=== PATIENT | female | born 1940 | race Caucasian/White ===

== ENCOUNTER 2017-11-03 12:23 | Inpatient (IN) ==
--- NOTE | 2017-11-03 08:55 | Discharge Summary ---
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 Diabetes mellitus complication status: with unspecified complications Qualified Code(s): E11.8 - Type 2 diabetes mellitus with unspecified complications (4) HTN (hypertension) Priority: Secondary Status: Chronic Qualifiers: Hypertension type: essential hypertension Qualified Code(s): I10 - Essential (primary) hypertension (5) Thyroid disease Priority: Secondary Status: Chronic (6) CKD (chronic kidney disease) stage 3, GFR 30-59 ml/min Priority: Secondary Status: Chronic (7) Obesity Priority: Secondary Status: Acute Qualifiers: Obesity type: due to excess calories Obesity classification: unspecified obesity classification Serious obesity comorbidity presence: without serious comorbidity Qualified Code(s): E66.09 - Other obesity due to excess calories - Hospital Course Hospital course: Ms. Ulloa is a 77 year old female - Time Spent with Patient Total time spent providing and/or coordinating discharge services: - Discharge Medications Home Medications: Allopurinol [Zyloprim] 300 mg PO DAILY 05/19/17 [History] Aspirin [Lo-Dose Aspirin EC] 81 mg PO DAILY 05/19/17 [History] Atenolol [Tenormin] 100 mg PO DAILY 05/19/17 [History] Cholecalciferol (D-3) [Vitamin D] 1,000 unit PO DAILY 05/19/17 [History] Fluticasone Propionate Nasal [Flonase] 1 spr NS DAILY PRN 05/19/17 [History] Furosemide [Lasix] 20 mg PO BID 05/19/17 [History] Levothyroxine [Synthroid] 150 mcg PO DAILY 05/19/17 [History] Losartan/Hydrochlorothiazide [Hyzaar 100-25 Tablet] 1 tab PO DAILY 05/19/17 [ History] Metformin HCl [Glucophage] 1,000 mg PO BID 05/19/17 [History] Pantoprazole Sodium [Protonix] 40 mg PO DAILY 05/19/17 [History] glipiZIDE [Glipizide] 10 mg PO BID 05/19/17 [History] OxyCODONE Immed Rel [Roxicodone 5 MG] 5 mg PO Q6HR PRN 7 Days #28 tablet [Rx] Allergies/Adverse Reactions: 3 Allergy/AdvReac Type Severity Reaction Status Date / Time No Known Allergies Allergy Verified 11/03/17 13:30 Primary care physician: Dafne Rodriguez - Patient Status Disposition: Home, Self-Care Condition: Good - Discharge Instructions Follow Up With: Dafne Rodriguez MD [Primary Care Provider] - <Gilberto Dale - Last Filed: 11/04/17 05:58> Orders not resulted at time of discharge: Pending orders 11/03/17 06:54 XR shoulder complete LT [XR] Routine Hemoglobin and Hematocrit [HEME] Routine Date of Encounter: 11/04/17 Time of Encounter: 05:58 - Discharge Diagnosis (1) Obesity (BMI 35.0-39.9 without comorbidity) Priority: Secondary Status: Chronic (2) Cervical stenosis of spinal canal Priority: Secondary Status: Chronic (3) Cervical myelopathy Priority: Secondary Status: Chronic (4) Rotator cuff arthropathy of left shoulder Priority: Primary Status: Chronic (5) Status post reverse total arthroplasty of left shoulder Priority: Primary Status: Acute (6) DMII (diabetes mellitus, type 2) Priority: Secondary Status: Chronic Qualifiers: 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 Ulloa is a 77 year old female Status post left total shoulder replacement The patient had an uneventful postoperative course. They received antibiotics and physical therapy and were discharged in stable condition. There will follow -up in the office in 2 weeks. - Time Spent with Patient Total time spent providing and/or coordinating discharge services: Primary care physician: Dafne Rodriguez - Patient Status Functional capacity at discharge: independent ambulation Overall status at discharge: patient is progressing back to baseline
[2017-11-03] MEDS ORDERED: CeFAZolin Syr 2,000MG/20 ML 2,000 MG/20 ML SYRINGE IVPB ONE (12:55)
--- NOTE | 2017-11-03 12:57 | Anesthesia Evaluation PreOp ---
Date of Encounter: 11/03/17 Time of Encounter: 12:57 - Past History Planned Operation: Left Total Shoulder Replacement Cardiac History: HTN Pulmonary History: Denies Any Significant HX INVESTOR RELATIONS COORDINATOR History: Denies Any Significant HX Other Medical History: Renal (CRD stage III), Diabetes Type II, Thyroid (Hypo) Anesthesia History: No Prior Anesthetic Complications, Past Anesthesia (L. knee , REGGIE,Breast cyst, Foot sx, R. TKR, multiple level cervical fusion) : No Alcohol Use: none Drug use: none Medications and Allergies Allopurinol [Zyloprim] 300 mg PO DAILY 05/19/17 [History] Aspirin [Lo-Dose Aspirin EC] 81 mg PO DAILY 05/19/17 [History] Atenolol [Tenormin] 100 mg PO DAILY 05/19/17 [History] Cholecalciferol (D-3) [Vitamin D] 1,000 unit PO DAILY 05/19/17 [History] Duloxetine HCl [Cymbalta] 60 mg PO HS 05/19/17 [History] Fluticasone Propionate Nasal [Flonase] 1 spr NS DAILY PRN 05/19/17 [History] Furosemide [Lasix] 20 mg PO BID 05/19/17 [History] Levothyroxine [Synthroid] 150 mcg PO DAILY 05/19/17 [History] Losartan/Hydrochlorothiazide [Hyzaar 100-25 Tablet] 1 tab PO DAILY 05/19/17 [ History] Metformin HCl [Glucophage] 1,000 mg PO BID 05/19/17 [History] Pantoprazole Sodium [Protonix] 40 mg PO DAILY 05/19/17 [History] Tizanidine HCl [Zanaflex] 2 mg PO HS 05/19/17 [History] glipiZIDE [Glipizide] 10 mg PO BID 05/19/17 [History] OxyCODONE Immed Rel [Roxicodone 5 MG] 5 mg PO Q6HR PRN 7 Days #28 tablet [Rx] 3 Allergy/AdvReac Type Severity Reaction Status Date / Time No Known Allergies Allergy Verified 05/19/17 07:32 - Meds/Allergy Pre-op Review Medications Reviewed: Yes Allergies Reviewed: Yes Beta Blockers on Current Med List: Yes If Beta Blockers taken, Date/Time (Last Dose taken): 08:00 11/03/2017 Anesthesia Results - Labs Laboratory Tests 10/27/17 10/27/17 10/27/17 11:54 11:54 11:54 WBC 10.3 Hgb 11.3 L Hct 30.6 L Plt Count 207 INR 1.0 Sodium 137 Potassium 4.2 Chloride 101 Carbon Dioxide 25 BUN 24 H Creatinine 1.22 H - Imaging EKG: report reviewed (SR, RBBB) Anesthesia Exam O2 Sat Height 1.63 m Height 1.63 m Height 1.63 m Weight 101.605 kg Weight 101.605 kg Weight 101.605 kg O2 Sat by Pulse Oximetry 94 Vital Signs Temp Pulse Resp BP Pulse Ox 98.1 F 71 18 173/75 94 11/03/17 12:45 11/03/17 12:45 11/03/17 12:45 11/03/17 12:45 11/03/17 12:45 - HEENT Pupil (Motor): Pupils equal, EOMI Mallampati: IV (Very limited neck extension) Teeth: Normal Oral Opening: Greater than 3 - INVESTOR RELATIONS COORDINATOR LOC: Oriented INVESTOR RELATIONS COORDINATOR Motor: Normal RUE, Normal LUE, Normal RLE, Normal LLE, Normal Face INVESTOR RELATIONS COORDINATOR Sensory: Normal: RUE, LUE, RLE, LLE, Face - Cardiac Rhythm: Regular Murmur: None JVD: No Carotid Bruit: No - Pulmonary Breath Sounds: bilateral Clear Respiratory Effort: Symmetrical Anesthesia Assess/Plan ASA Score: 3 Modified Joey Scale for Level of Consciousness: Cooperative, oriented, and tranquil Anesthetic Plan: General, Regional (Brachial Plexus Block) Autologous Blood: Yes Monitoring Plan: Standard Monitors Recovery Plan: PACU
[2017-11-03] MEDS ORDERED: Ringers Solution, Lactated 500 ML IVC SCH (13:00)
[2017-11-03] MEDS ORDERED: Bupivacaine/Clonidine Syringe 1 EACH SYRINGE ONE (13:03)
[2017-11-03] MEDS ORDERED: ROPIVACAINE HCL/PF 0.5% 30 ML VIAL ONE (13:03)
[2017-11-03] MEDS ORDERED: *HR* FentaNYL (PF) 100 MCG/2 ML VIAL ONE (13:07)
[2017-11-03] MEDS ORDERED: *HR* Midazolam HCl 2 MG/2 ML VIAL ONE (13:07)
[2017-11-03] MEDS ORDERED: *HR* Propofol 200 MG/20 ML VIAL IVP ONE (13:07)
[2017-11-03] MEDS ORDERED: Lidocaine -MPF 2% 2 ML VIAL ONE (13:10)
[2017-11-03] MEDS ORDERED: *HR* Rocuronium Bromide 50 MG/5 ML VIAL ONE (13:13)
[2017-11-03] MEDS ORDERED: Lidocaine -MPF 4% 5 ML AMPUL ONE (13:13)
[2017-11-03] MEDS ORDERED: *HR* Succinylcholine 200 MG/10 ML VIAL IVP ONE (13:13)
--- NOTE | 2017-11-03 13:16 | History & Physical Report ---
Date of Encounter: 11/03/17 Time of Encounter: 13:15 24 Hour HP Update - Instructions Instructions: If the History and Physical is less than 30 days old and was completed prior to A.M. admission and or procedure and has NOT been updated on calendar day of procedure please complete this update prior to performing procedure. - Update Patient reports changes in Medical Condition: No Changes in examination, assessment, or condition: No Changes in Medication: No Preop tests/diagnostics Reviewed: Yes Surgery Remains Indicated: Yes Consent for Planned Operative Procedure(s) Verified: Yes - Pre-Operative Checklist Preoperative Checklist Indicated: No Prophylactic Antibiotic Ordered: Yes Is VTE Prophylaxis Indicated?: Yes
[2017-11-03] MEDS ORDERED: Dexamethasone 4 MG/ML VIAL ONE (13:56)
[2017-11-03] MEDS ORDERED: Ondansetron 4 MG/2 ML VIAL ONE (13:56)
[2017-11-03] MEDS ORDERED: MORPHINE SUL Oral CONC 10 MG/0.5 ML ORAL.SYG SL PRN (13:57)
[2017-11-03] MEDS ORDERED: *HR* OxyCODONE Immed Rel 5 MG TABLET PO PRN ×2 (13:57→16:07)
[2017-11-03] MEDS ORDERED: *HR* HYDROmorphone 2 MG TABLET PO PRN (13:57)
[2017-11-03] MEDS ORDERED: Ondansetron 4 MG/2 ML VIAL IVP ONE (13:57)
--- NOTE | 2017-11-03 14:07 | Anesthesia Procedures ---
Date of Encounter: 11/03/17 Time of Encounter: 14:04 Procedures: Anesthesia - Nerve Block Procedure Date: 11/03/17 Time: 14:04 Allergies/Adv Reactions: No Known Allergies Allergy (Verified 11/03/17 13:30) Pre-op Diagnosis: left rotator cuff arthropathy Surgical Procedure: left shoulder reverse ball Checklist: Correct Patient Identifier, Correct procedure, History checked Correct side: Left Blood Thinner: No Monitor Applied: EKG, BP, Pulse Oximetry Supplemental Oxygen via Nasal Cannula (L/min): 2 Sedation: Versed (mg): 1 Sedation: Fentanyl (mcg): 50 Indication: Post Op Analgesia Block Type: Supraclavicular Catheter placed: No Sterile Technique: Yes Ultrasound used: Yes Anatomy identified: Yes Visual spread of Local: Yes Neuro Stimulation: No Blood on Needle Aspiration: No Smooth Injection of Local: Yes Pain with Injection of Local: No Prep: Chlorhexadine Needle: 22 x 50 mm Stimuplex Local: Ropivacaine (0.5) Volume (cc): 30 Number of Attempts: 1 Complications: None/effective block
[2017-11-03] MEDS ORDERED: EPHEDrine 50 MG/ML VIAL ONE (14:34)
--- NOTE | 2017-11-03 15:21 | Orthopedic Operative Note ---
Date of procedure: 11/03/17 Pre-op diagnosis: Left shoulder cuff tear arthropathy Post-op diagnosis: same Procedure: Procedure: Total Shoulder Replacment Reverse, left Estimated blood loss: 100 cc Hardware: Metal and polyethylene replacement: Arthrex medium glenoid baseplate , 2 4.5 screws. 1 6.5 screw, 42+4 glenosphere, 8 humeral stem, poly insert 6 Exam Under anesthesia: Full motion on stability Procedural Notes: Irreparable tear supraspinatus tendon, grade 4 arthritic changes humeral head and glenoid socket. Operative procedure: The patient was brought to the operating room and placed on the operating room table. After general anesthesia was administered the operative shoulder was examined. Findings were noted. The patient was placed in the modified beachchair position. All pressure points were padded appropriately. And the head was stabilized in the neutral position. The operative extremity was prepped and draped in the sterile surgical fashion. The patient received IV antibiotics prior to skin incision. A standard deltopectoral approach was made to the operative shoulder. Incision was made to the skin and subcutaneous tissue,hemo stasis was obtained with Bovie cautery. Using careful blunt dissection the cephalic vein was identified and mobilized medially. The deltopectoral interval was developed and the clavipectoral fascia was incised. The subscap was released off the lesser tuberosity and tagged with #2 FiberWire suture subscap was irreparable. The humerus was dislocated patient noted to have irreparable tear supraspinatus tendon, and the humeral cut was made along the anatomic neck.The patient noted to have grade 4 arthritic changes humeral head. Anterior and posterior Bankart retractors were placed to expose the glenoid. Patient noted to have grade 4 arthritic changes glenoid socket. The glenoid guide was seated and the centering hole was made. It was reamed with the appropriate reamer. TheXbaseplate was seated and secured with (2) 4.5 screws and one 6.5 screw. The baseplate was irrigated and dried and the 42+4 Glenosphere was seated and secured with the Vickers taper. The Vickers taper was tested and found to be secure the humerus was redislocated and prepared with the diaphyseal reamers, followed by a broaching process up to the appropriate size 8 in the patient's anatomic version. The metaphyseal reamer was then utilized. Trial reduction found the shoulder to be relocatable. Trial components were removed and The appropriate 8 stem was impacted in place in the patient's anatomic version. Trial reduction found the shoulder to be relocatable and stable with the appropriate 6. Trial component was removed and the real implant was seated and secured the shoulder was reduced. The shoulder had excellent motion and excellent stability and no evidence of dislocation. The deep tissue was irrigated with pulse irrigation. The PA close the shoulder. The deltopectoral interval was closed with a running #1 PDS suture, subcutaneous tissue was irrigated and closed with 0 PDS suture, the skin was closed with Dermabond. The patient was placed in a sterile dressing, abduction brace and extubated. The patient was then transferred to the recovery room in stable condition. Anesthesia: SCOTT Surgeon: Gilberto Dale Was there an assistant plant control operator present: Yes Brand Engineer: Genoveva Bazzi Estimated blood loss (cc): 100 Condition: stable Disposition: PACU
--- NOTE | 2017-11-03 15:57 | Anesthesia Evaluation Post Op ---
Date of Encounter: 11/03/17 Time of Encounter: 15:57 - Vital Signs Vital Signs: Vital Signs/O2 Sat, Most Current Temp Pulse Resp BP Pulse Ox 98.4 F 74 22 147/67 94 11/03/17 15:23 11/03/17 15:43 11/03/17 15:43 11/03/17 15:43 11/03/17 15:43 - Lungs Lungs: Clear Ascult./Percussion - Airway Airway: Non-obstructed - Cardiovascular Regular Rate - Mental Status Mental Status: Alert & Oriented, Answers Appropriately - Pain Pain Scale: 0 Pain Scale used: Numeric (1 - 10) - Nausea Vomiting Nausea Vomiting: Not Present - Hydration Hydration: Tolerates oral liquids, Has not voided - Discharge PostOp Status: Transfer Patient to floor
[2017-11-03] MEDS ORDERED: *HR* Dextrose 50 % in Water (Syg) 50 ML SYRINGE IVP PRN (16:07)
[2017-11-03] MEDS ORDERED: *HR* OxyCODONE/APAP 5/325 TABLET PO PRN (16:07)
[2017-11-03] MEDS ORDERED: Dextrose Gel 15 GM/37.5 ML TUBE PO PRN ×2 (16:07)
[2017-11-03] MEDS ORDERED: Ondansetron 4 MG/2 ML VIAL IVP PRN (16:07)
[2017-11-03] MEDS ORDERED: Ringers Solution, Lactated 1,000 ML IVC SCH (16:07)
[2017-11-03] MEDS ORDERED: Fluticasone Propionate Nasal 50 MCG/SPRAY BOTTLE NS PRN (16:07)
[2017-11-03] MEDS ORDERED: MOM Conc 10 ML UD.LIQ PO PRN (16:07)
[2017-11-03] MEDS ORDERED: Naloxone 0.4 MG/ML INJ IVP PRN (16:07)
[2017-11-03] MEDS ORDERED: CeFAZolin Pre 2,000 MG/100 ML 2,000 MG/100 ML BAG IVPB SCH (16:07)
[2017-11-03] MEDS ORDERED: Temazepam 15 MG CAPSULE PO PRN (16:07)
[2017-11-03] MEDS ORDERED: D5% in Water 1,000 ML IVC PRN (16:07)
[2017-11-03] MEDS ORDERED: traMADol 50 MG TABLET PO PRN (16:07)
[2017-11-03] MEDS ORDERED: Sennosides 8.6 MG TABLET PO PRN (16:07)
[2017-11-03 16:27] LABS: Hematocrit 32.4 % (35.3-44.9); Hemoglobin 10.7 g/dL (11.5-15.4)
[2017-11-03] MEDS: Insulin LISPRO 300 UNITS/3 ML VIAL SQ SCH (17:38)
[2017-11-03] MEDS: *HR* Enoxaparin 30 MG/0.3 ML SYRINGE SQ SCH (17:39)
[2017-11-03] MEDS: *HR* GlipiZIDE 5 MG TABLET PO SCH (17:39)
[2017-11-03] MEDS ORDERED: *HR* Enoxaparin 30 MG/0.3 ML SYRINGE SQ SCH (18:00)
[2017-11-03] MEDS: *HR* Metformin 500 MG TABLET PO SCH (20:04)
[2017-11-03] MEDS: Furosemide 20 MG TABLET PO SCH (20:04)
[2017-11-03] MEDS ORDERED: Insulin LISPRO 300 UNITS/3 ML VIAL SQ SCH (21:00)
[2017-11-03] MEDS: CeFAZolin Pre 2,000 MG/100 ML 2,000 MG/100 ML BAG IVPB SCH (23:11)
[2017-11-04 02:26] LABS: Hematocrit 32.6 % (35.3-44.9)
--- NOTE | 2017-11-04 05:59 | Orthopedics Progress Note ---
Date of Encounter: 11/04/17 Time of Encounter: 05:59 - Assessment and Plan (1) Obesity (BMI 35.0-39.9 without comorbidity) Current Visit: Yes Status: Chronic (2) Cervical stenosis of spinal canal Current Visit: No Status: Chronic (3) Cervical myelopathy Current Visit: No Status: Chronic (4) Rotator cuff arthropathy of left shoulder Current Visit: No Status: Chronic (5) Status post reverse total arthroplasty of left shoulder Current Visit: No Status: Acute (6) DMII (diabetes mellitus, type 2) Current Visit: No Status: Chronic Qualifiers: Diabetes mellitus usp insulin use: unspecified exterminator insulin use status Diabetes mellitus complication status: with unspecified complications Qualified Code(s): E11.8 - Type 2 diabetes mellitus with unspecified complications (7) HTN (hypertension) Current Visit: No Status: Chronic Qualifiers: Hypertension type: essential hypertension Qualified Code(s): I10 - Essential (primary) hypertension (8) Thyroid disease Current Visit: No Status: Chronic (9) CKD (chronic kidney disease) stage 3, GFR 30-59 ml/min Current Visit: No Status: Chronic Subjective Interval history: Patient was seen this morning doing well without complaints. Afebrile vital signs stable. Operative extremity: Neurovascularly intact Dressing clean dry and intact Calves nontender Assessment and plan: Continue with postoperative care Hematocrit 32 discharged today Objective Vital signs: Vital Signs Temp Pulse Resp BP Pulse Ox 11/04/17 03:42 97.7 F 81 18 143/73 93 11/03/17 22:39 97.5 F L 79 18 138/80 93 11/03/17 20:10 98.1 F 87 15 142/69 98 11/03/17 19:25 97.8 F 70 16 128/83 94 11/03/17 18:26 97.8 F 77 18 137/91 93 11/03/17 18:12 97.5 F L 74 16 135/67 94 11/03/17 17:40 97.5 F L 68 16 113/64 94 11/03/17 17:10 97.5 F L 71 15 121/75 93 11/03/17 16:03 74 20 150/72 92 11/03/17 15:53 97.6 F 75 20 149/75 93 11/03/17 15:43 74 22 147/67 94 11/03/17 15:33 75 20 133/84 95 11/03/17 15:23 98.4 F 78 20 145/93 95 11/03/17 14:01 71 149/91 94 11/03/17 13:40 74 126/99 92 11/03/17 12:45 98.1 F 71 18 173/75 94 Intake and Output 11/03/17 11/03/17 11/04/17 15:59 23:59 07:59 Output Total 100 / 100 Balance -100 / -100 Output: Estimated Blood Loss 100 / 100 Other: Weight 101.605 kg Blood Glucose* 124 235 - Labs CBC & BMP: 11/04/17 02:00 Labs: Abnormal lab results Hgb 11.0 g/dL (11.5-15.4) L 11/04/17 02:00 Hct 32.6 % (35.3-44.9) L 11/04/17 02:00 POC Glucose 235 mg/dL (70-99) H 11/03/17 19:35 - VTE Documentation of Mechanical Device: Venous foot pump, device Consult Discharge Plan - Plan Referrals: Dafne Rodriguez MD [Primary Care Provider] -
[2017-11-04] MEDS: *HR* Enoxaparin 30 MG/0.3 ML SYRINGE SQ SCH (07:11)
[2017-11-04] MEDS: CeFAZolin Pre 2,000 MG/100 ML 2,000 MG/100 ML BAG IVPB SCH (07:20)
[2017-11-04 07:30] VITALS: BP 123/72
[2017-11-04] MEDS: Insulin LISPRO 300 UNITS/3 ML VIAL SQ SCH (08:12)
[2017-11-04] MEDS: *HR* GlipiZIDE 5 MG TABLET PO SCH (08:13)
[2017-11-04] MEDS: Furosemide 20 MG TABLET PO SCH (08:13)
[2017-11-04] MEDS: *HR* Metformin 500 MG TABLET PO SCH (08:13)
[2017-11-04] MEDS ORDERED: Losartan/HCTZ 50-12.5 TABLET PO SCH (09:00)
[2017-11-04] MEDS ORDERED: Aspirin Enteric Coated 81 MG Tablet PO SCH (09:00)
[2017-11-04] MEDS ORDERED: Cholecalciferol (D-3) 1,000 UNIT TABLET PO SCH (09:00)
--- NOTE | 2017-11-04 12:35 | Event Note ---
Date of Encounter: 11/04/17 Time of Encounter: 12:35 PCR - POD#1 - Left TSR-reverse Discharged today, will plan to get BMP for kidney function as outpatient
== END 2017-11-04 12:36 | disposition home or self-care (01) | DRG 483 ==
LOC: SAMDAY 12:23 → 3NENU 16:03
PROVIDERS: ADMIT Orthopaedic Surgery; ATTEND Orthopaedic Surgery

== ENCOUNTER 2019-01-08 15:35 | Observation (INO) ==
--- NOTE | 2019-01-08 15:50 | Emergency Department Note ---
Disposition Clinical Impression: Hypokalemia, Acute kidney injury superimposed on CKD Diarrhea Qualifiers: Diarrhea type: unspecified type Qualified Code(s): R19.7 - Diarrhea, unspecified Disposition: Admitted As Inpatient Condition: Fair Referrals: Dafne Rodriguez MD [Primary Care Provider] - Forms: ED Satisfaction Letter Time of Disposition: 17:03 General Adult HPI - General Chief complaint: ED Recheck/Abnormal Lab/Rx Stated complaint: Abnormal labs Time Seen by Provider: 01/08/19 15:50 Source: family Limitations: no limitations - History of Present Illness HPI Narrative: She is an 78-year-old female sent over from the cancer center. She was diagnosed with breast cancer recently and has been getting chemotherapy. Dates that her oncologist asked her to come over to [place] for further evaluation due to an increase in kidney function noted on labs today. Does note profound diarrhea is nonbloody but states that she is in the bathroom all day. She denies any chest pain, shortness of breath, nausea/vomiting, abdominal pain, dizziness or lightheadedness. Denies any dysuria or hematuria. She is not in any pain at this time. She does have a port in place but denies any tenderness around the site of insertion. Pt Subjective Complaint: sent from cancer center Pain Scale: 0 - Related Data Home Medications Medication Instructions Recorded Confirmed Allopurinol [Zyloprim] 300 mg PO DAILY 05/19/17 01/08/19 Atenolol [Tenormin] 100 mg PO DAILY 05/19/17 01/08/19 Cholecalciferol (D-3) [Vitamin D] 1,000 unit PO DAILY 05/19/17 01/08/19 Fluticasone Propionate Nasal 1 spr NS BID PRN 05/19/17 01/08/19 [Flonase] Furosemide [Lasix] 20 mg PO BID 05/19/17 01/08/19 Levothyroxine [Synthroid] 150 mcg PO DAILY 05/19/17 01/08/19 Losartan/Hydrochlorothiazide 1 tab PO DAILY 05/19/17 01/08/19 [Hyzaar 100-25 Tablet] Metformin HCl [Glucophage] 1,000 mg PO BID 05/19/17 01/08/19 Pantoprazole Sodium [Protonix] 40 mg PO DAILY 05/19/17 01/08/19 Duloxetine HCl [Cymbalta] 60 mg PO DAILY 11/04/18 01/08/19 Glimepiride [Amaryl] 4 mg PO BID 11/04/18 01/08/19 Meclizine HCl [Verticalm] 25 mg PO DAILY PRN 11/04/18 01/08/19 Previous Rx's Medication Instructions Recorded Lidocaine/Prilocaine [Emla] 1 appl TP AD PRN #30 gm 11/19/18 Ondansetron HCl 8 mg PO Q8H #45 tablet 11/19/18 Prochlorperazine Maleate 10 mg PO Q6HR PRN #90 tablet 11/19/18 [Compazine] Allergies Allergy/AdvReac Type Severity Reaction Status Date / Time No Known Allergies Allergy Verified 12/25/18 13:55 Review of Systems: Constitutional: denies fever, chills HEENT: denies blurry vision, tinnitus Cardio: denies chest pain, palpiltations Lungs: denies SOB, wheeze, cough, hemoptysis GI: denies N/V and abdominal pain; (+) diarrhea nonbloody : denies dysuria, hematuria MSK: denies decreased ROM, joint swelling or stiffness; can ambultate on their own Heme: denies easy bruising Neuro: deneis numbness or tingling, denies dizziness Skin: denies open wounds or cuts, denies tattoos Lymph: denies swelling, denies fluid retention Allergy: denies seasonal allergies or food allergies All systems ED: reviewed and negative except as stated. Review of Systems: As Per HPI Past Medical History - Past Medical History Attestation: Yes The following information was validated with the patient. Medical history: Reports: arthritis, diabetes, hyperlipidemia, hypertension Surgical history: Reports: hysterectomy Psychiatric history: Reports: anxiety, depression - Social History Smoking Status: Never smoker Smokeless Tobacco Status: No Alcohol use: Reports: none Drug use: Reports: none Physical Exam General: Well-developed, well-nourished patient lying in bed who appears non-tox ic, no apparent distress Head: Atraumatic, normocephalic. Eyes: Sclera anicteric. ENT: Mucous membranes moist. Heart: Regular rate and rhythm without appreciable murmur. S1S2 CTA Neck: no JVD Lungs: Normal respiratory pattern without distress, lungs clear to auscultation b/l. No wheeze, rhonchi, rales or stridor Abdomen: Soft, non-tender, non-distended, no guarding or peritoneal signs. No bruising noted to the abdomen. Skin: Warm and dry without rash. Neurologic: Awake and alert with normal speech and mental status. Moves all extremities equally well. No focal deficits or lateralizing signs. Follows command. Psychiatric: Mood and affect appropriate. Musculoskeletal: No peripheral edema. No asymmetrical swelling, no calf tenderness - General Limitations: no limitations General appearance: alert Course Course Narrative: Pt coming in from [facility]. We will check her CBC, CMP and obtain a urinalysis. Last recorded creatinine was 1.90 and December 29 and her baseline a ppears to be around 1.5 ever her highest creatinine recorded was 1.97. History of profound diarrhea the patient likely has AK on CKD secondary to dehydration and prerenal sources. Disposition pending likely to be admitted for further evaluation. - Reevaluation(s) Reevaluation #1: Sitting comfortably in bed does request this time. She is updated on her lab results and is agreeable to admission. Time: 16:45 Reevaluation #2: potassium 3.4, replaced Time: 17:05 - Consultations Consultation #1: Post accepted the admission. Spoke with Dr. black and she questions that I call the bearing machine operator on-call. Time: 17:05 Consultation #2: Consult order placed for nephrology, call not completed at this time. Time: 17:18 Vital Signs Temperature 97.7 F 01/08/19 15:36 Pulse Rate 73 01/08/19 15:36 Respiratory Rate 18 01/08/19 15:36 Blood Pressure 92/61 01/08/19 15:36 O2 Sat by Pulse Oximetry 95 01/08/19 15:36 Temperature 97.7 F 01/08/19 15:36 Pulse Rate 73 01/08/19 15:36 Respiratory Rate 18 01/08/19 15:36 Blood Pressure 92/61 01/08/19 15:36 O2 Sat by Pulse Oximetry 95 01/08/19 15:36 Oxygen Delivery Oxygen Delivery Room Air Medical Decision Making - MDM Narrative Medical decision making narrative: pt is 78-year-old female who presented for abnormal labs from [facility] noted to have an increasing creatinine her baseline creatinine is around 1.4- 1.5. Her creatinine was found to be 1.9 about one week ago, her creatinine today is 3.52. This is due to profound diarrhea that she has been experiencing secondary to chemotherapy and poor by mouth intake, likely this is prerenal source DARON superimposed on CKD. Also noted to have hypokalemia at 3.4, this was replaced with by mouth potassium. It is hyponatremic at 131, will replace fluids with normal saline. Hospitalist accepted the admission and patient will be admitted for observation. Patient is agreeable to the plan and has no further questions. - Medical Records Medical records reviewed: Yes I reviewed the patient's medical records. - Lab Data Lab results reviewed: Yes I reviewed the patient's lab results. Result diagrams: 01/08/19 16:17 01/08/19 16:17 Lab Results 01/08/19 01/08/19 01/08/19 Range/Units 16:17 16:17 16:45 WBC 6.3 (4.3-11.1) K/mcL RBC 4.13 (3.82-4.97) M/mcL Hgb 11.1 L (11.5-15.4) g/dL Hct 34.2 L (35.3-44.9) % MCV 82.8 L (83.0-100.0) fL MCH 26.9 L (28.0-33.3) pg MCHC 32.5 (31.6-35.5) g/dL RDW 16.5 H (11.5-14.5) % Plt Count 188 (140-400) K/mcL MPV 10.9 (9.4-12.4) fL Immature Gran % 1.1 (0-4) % Seg Neutrophils % 55.3 % Lymphocytes % 31.9 % Monocytes % 10.2 % Eosinophils % 1.0 % Basophils % 0.5 % Neutrophils # 3.5 (1.6-8.9) K/mcL Lymphocytes # 2.0 (0.6-4.6) K/mcL Monocytes # 0.6 (0.0-1.3) K/mcL Eosinophils # 0.1 (0.0-0.6) K/mcL Basophils # 0.0 (0.0-0.2) K/mcL Nucleated RBCs/100 WBC 0.3 H (0) /100 WBC Sodium 131 L (136-145) mEq/L Potassium 3.4 L (3.5-5.1) mEq/L Chloride 102 (98-107) mEq/L Carbon Dioxide 17 L (23-29) mEq/L BUN 53 H (8-23) mg/dL Creatinine 3.52 H (0.60-1.20) mg/dL Est GFR ( Amer) 15 L (> 60) Est GFR (Non-Af Amer) 12 L (> 60) BUN/Creatinine Ratio 15 (6-26) Glucose 171 H (70-105) mg/dL Calculated Osmolality 290 (280-300) Calcium 8.4 L (8.6-10.3) mg/dL Total Bilirubin 0.5 (0.3-1.0) mg/dL AST 18 (13-39) Units/L ALT 17 (7-52) Units/L Alkaline Phosphatase 122 H (34-104) Units/L Serum Total Protein 6.1 L (6.4-8.9) g/dL Albumin 3.4 L (3.5-5.7) g/dL Globulin 2.7 (2.4-3.5) g/dL Albumin/Globulin Ratio 1.3 (1.1-2.2) Urine Color Yellow (Yellow) Urine Clarity Cloudy A (Clear) Urine pH 5.0 (5.0-8.0) pH Units Ur Specific [place] 1.026 H (1.010-1.025) Urine Protein 30 H (Neg-Trace) mg/dL Urine Glucose (UA) Normal (Normal) mg/dL Urine Ketones Trace H (Negative) mg/dL Urine Blood Negative (Negative) Urine Nitrite Negative (Negative) Urine Bilirubin Moderate H (Negative) Urine Urobilinogen Normal (Normal) mg/dL Ur Leukocyte Esterase Small H (Negative) Urine Microscopic WBC 3-5 H (0-3) per hpf Ur Squamous Epith Cells Few (None-Few) per lpf Urine Bacteria Few (None-Few) per hpf Hyaline Casts Few (None-Few) per lpf Ur Culture Indicated? YES A (NO) Attestation Statement - Attestation Attestation: I reviewed the residents documentation and agree with the residents assessment and plan of care. I have personally had face to face time with the patient. (Brief History, Brief Exam, and MDM) I personally supervised and was present for the gutierrez/critical portions of the following procedures completed by the resident: (add procedures performed here). [id number] time provided Patient arrives at the recommendation of the cancer center with reports of outpatient labs indicating an elevated creatinine from baseline. Patient appea rs in no acute distress on exam. I evaluated this patient in conjunction with the resident physician Dr. Gonsales
[2019-01-08 16:32] LABS: Basophils % 0.5 %; Eosinophils # 0.1 K/mcL (0.0-0.6); Hematocrit 34.2 % (35.3-44.9); Hemoglobin 11.1 g/dL (11.5-15.4); Immature Granulocytes % 1.1 % (0-4); Lymphocytes % 31.9 %; Mean Corpuscular HGB Conc 32.5 g/dL (31.6-35.5); Mean Corpuscular Hemoglobin 26.9 pg (28.0-33.3); Mean Corpuscular Volume 82.8 fL (83.0-100.0); Mean Platelet Volume 10.9 fL (9.4-12.4); Monocytes # 0.6 K/mcL (0.0-1.3); Monocytes % 10.2 %; Neutrophils # 3.5 K/mcL (1.6-8.9); Nucleated Red Blood Cells 0.3 /100 WBC (0); Platelet Count 188 K/mcL (140-400); Red Blood Count 4.13 M/mcL (3.82-4.97); Red Cell Distribution Width 16.5 % (11.5-14.5); Segmented Neutrophils % 55.3 %; White Blood Count 6.3 K/mcL (4.3-11.1)
[2019-01-08 16:51] LABS: Alanine Aminotransferase 17 Units/L (7-52); Albumin 3.4 g/dL (3.5-5.7); Albumin/Globulin Ratio 1.3 (1.1-2.2); Alkaline Phosphatase 122 Units/L (34-104); Aspartate Amino Transferase 18 Units/L (13-39); BUN/Creatinine Ratio 15 (6-26); Bilirubin,Total 0.5 mg/dL (0.3-1.0); Blood Urea Nitrogen 53 mg/dL (8-23); Calcium 8.4 mg/dL (8.6-10.3); Carbon Dioxide 17 mEq/L (23-29); Chloride 102 mEq/L (98-107); Globulin 2.7 g/dL (2.4-3.5); Glucose 171 mg/dL (70-105); Osmolality,Calculated 290 (280-300); Potassium 3.4 mEq/L (3.5-5.1); Sodium 131 mEq/L (136-145); Total Protein 6.1 g/dL (6.4-8.9); eGFR For African Americans 15 (> 60); eGFR For Non-African Americans 12 (> 60)
[2019-01-08] MEDS ORDERED: Potassium Chloride Elixir 20 MEQ/15 ML UDC PO ONE (16:54)
[2019-01-08] MEDS ORDERED: 0.9 % Sodium Chloride 1,000 ML IVC ONE (16:55)
[2019-01-08 16:58] LABS: Bilirubin,Urine Moderate (Negative); Blood,Urine Negative (Negative); Clarity,Urine Cloudy (Clear); Glucose,Urine (UA) Normal (Normal); Ketones,Urine Trace mg/dL (Negative); Leukocyte Esterase,Urine Small (Negative); Nitrite,Urine Negative (Negative); Protein,Urine 30 mg/dL (Neg-Trace); Specific Gravity,Urine 1.026 (1.010-1.025); Urobilinogen,Urine Normal (Normal)
[2019-01-08 17:07] LABS: Color,Urine Yellow (Yellow)
[2019-01-08 17:09] LABS: Hyaline Casts,Urine Few per lpf (None-Few)
[2019-01-08 17:10] LABS: Bacteria,Urine Few per hpf (None-Few); Squamous Epithelial Cell,Urine Few per lpf (None-Few)
[2019-01-08] MEDS ORDERED: Naloxone 0.4 MG/ML INJ IVP PRN (17:22)
[2019-01-08] MEDS ORDERED: Ondansetron 4 MG/2 ML VIAL IVP PRN (17:22)
[2019-01-08] MEDS ORDERED: *HR* Dextrose 50 % in Water (Syg) 50 ML SYRINGE IVP PRN (17:25)
[2019-01-08] MEDS ORDERED: Dextrose Gel 15 GM/37.5 ML TUBE PO PRN ×2 (17:25)
[2019-01-08] MEDS ORDERED: D5% in Water 1,000 ML IVC PRN (17:25)
--- NOTE | 2019-01-08 17:35 | Internal Med History&Physical ---
Date of Encounter: 01/08/19 Time of Encounter: 17:31 Internal Medicine - H&P: HPI Chief complaint: acute diarrhea 2 days ago History of present illness: Ms. Ulloa is a 78 year old female with history of recently diagnosed breast cancer on chemotherapy last cycle was on last Friday, history of hypertension history of stage III chronic kidney disease, was referred from cancer Center because of acute on chronic kidney disease. Patient states that for the last 2 days she developed progressive severe diarrhea watery in nature no blood in it, was not associated with nausea vomiting or poor oral intake and also there is no abdominal pain, also the patient denies chest pain shortness of breath fever chills or cough. The patient also denies feeling dizzy or lightheaded. She denied dysuria however reports frequency without urgency. 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 by the ER physician Past Med Surg Social Fam HX - Past Medical History Medical history: arthritis, diabetes, hyperlipidemia, hypertension Additional medical history: artificial joints,xerosis,DJD knees,hx of vitamin D deficiency,metabolic syndrome,CKD stage 3,hx of thyroid nodule,CHF?,constipation,osteoarthritis,back pain,obesity,vertigo Psychiatric history: anxiety, depression - Past Surgical History Surgical History: hysterectomy Additional surgical history: left knee replacement,breast cyst removal,left knee arthroscopy,right knee arthroscopy,tonsillectomy,foot surgery-right foot,right knee replacement,right thyroid - Social History Smoking Status: Never smoker Smokeless Tobacco Status: No Alcohol use: none Drug use: none - Family History Mother Living Status: Hx Family Cardiac Disorders: Yes Hx Family Endocrine Disorder: Yes (DM) Father Living Status: Internal Medicine - H&P: Meds Allopurinol [Zyloprim] 300 mg PO DAILY 05/19/17 [History] Atenolol [Tenormin] 100 mg PO DAILY 05/19/17 [History] Cholecalciferol (D-3) [Vitamin D] 1,000 unit PO DAILY 05/19/17 [History] Fluticasone Propionate Nasal [Flonase] 1 spr NS BID PRN 05/19/17 [History] Furosemide [Lasix] 20 mg PO BID 05/19/17 [History] Levothyroxine [Synthroid] 150 mcg PO DAILY 05/19/17 [History] Losartan/Hydrochlorothiazide [Hyzaar 100-25 Tablet] 1 tab PO DAILY 05/19/17 [History] Metformin HCl [Glucophage] 1,000 mg PO BID 05/19/17 [History] Pantoprazole Sodium [Protonix] 40 mg PO DAILY 05/19/17 [History] Duloxetine HCl [Cymbalta] 60 mg PO DAILY 11/04/18 [History] Glimepiride [Amaryl] 4 mg PO BID 11/04/18 [History] Meclizine HCl [Verticalm] 25 mg PO DAILY PRN 11/04/18 [History] Lidocaine/Prilocaine [Emla] 1 appl TP AD PRN #30 gm 11/19/18 [Rx] Ondansetron HCl 8 mg PO Q8H #45 tablet 11/19/18 [Rx] Prochlorperazine Maleate [Compazine] 10 mg PO Q6HR PRN #90 tablet 11/19/18 [Rx] Allergy/AdvReac Type Severity Reaction Status Date / Time No Known Allergies Allergy Verified 12/25/18 13:55 All Systems PM: A 10-system review of systems was performed and is negative for pertinent fi ndings except as documented above in the HPI. Review of systems: Review of system: Regarding cardiology respiratory GI endocrine hematology musculoskeletal all negative except for multiple was mentioned in the H&P - Constitutional Vitals: Temp Pulse Resp BP Pulse Ox 97.7 F 73 18 92/61 95 01/08/19 15:36 01/08/19 15:36 01/08/19 15:36 01/08/19 15:36 01/08/19 15:36 Exam: Physical examination: Gen.: Patient is alert and oriented, not in respiratory distress or pain, sitting comfortably in bed HEENT: perrla , EOMI, no thyroid gland enlargement, no neck mass, supple neck Heart: S1 and S2 eran, normal sinus rhythm, no cardiac murmur no gallop rhythm Chest: Air entry equal bilaterally, clear chest, no wheezing, crackles or crepitation Abdomen: Soft nontender nondistended positive bowel sounds, no organomegaly Extremities: No pitting edema, peripheral pulses palpable, no cyanosis tenderness Neuro: Able to move all 4 limbs, Internal Med - H&P Results - Labs CBC & Chem 7: 01/08/19 16:17 01/08/19 16:17 Labs: Short CBC 01/08/19 Range/Units 16:17 WBC 6.3 (4.3-11.1) K/mcL Hgb 11.1 L (11.5-15.4) g/dL Hct 34.2 L (35.3-44.9) % Plt Count 188 (140-400) K/mcL Neutrophils # 3.5 (1.6-8.9) K/mcL BMP 01/08/19 16:17 Sodium 131 L Potassium 3.4 L Chloride 102 Carbon Dioxide 17 L BUN 53 H Creatinine 3.52 H Glucose 171 H Calcium 8.4 L Liver Function 01/08/19 Range/Units 16:17 Total Bilirubin 0.5 (0.3-1.0) mg/dL AST 18 (13-39) Units/L ALT 17 (7-52) Units/L Alkaline Phosphatase 122 H (34-104) Units/L Albumin 3.4 L (3.5-5.7) g/dL Urine 01/08/19 Range/Units 16:45 Urine Color Yellow (Yellow) Urine Clarity Cloudy A (Clear) Urine pH 5.0 (5.0-8.0) pH Units Ur Specific [place] 1.026 H (1.010-1.025) Urine Protein 30 H (Neg-Trace) mg/dL Urine Glucose (UA) Normal (Normal) mg/dL - Assessment and Plan (1) Acute kidney injury superimposed on CKD Current Visit: Yes Status: Acute Assessment and plan: Most likely secondary to acute diarrhea with dehydration Continue on IV fluid Avoid nephrotoxic medication Augment with BP and hold blood pressure medication Check urine culture Urinalysis indicate nitrate negative Leukocyte esterase positive and there is few pyuria Hold IV antibiotic until CT negative results (2) Diarrhea Current Visit: Yes Status: Acute Assessment and plan: Most likely secondary to chemotherapy Check C. difficile and stool culture Continue on IV hydration and correct electrolytes On famotidine for GERD Qualifiers: Diarrhea type: unspecified type Qualified Code(s): R19.7 - Diarrhea, unspecified (3) Hypokalemia Current Visit: Yes Status: Acute Assessment and plan: Replaced orally by the ER physician Check serum magnesium and serum phosphorous (4) Breast cancer Current Visit: No Status: Chronic Assessment and plan: Status post chemotherapy Outpatient follow-up Qualifiers: Breast location: upper outer quadrant of breast Estrogen receptor status: positive Patient sex: female Laterality: right Qualified Code(s): C50.411 - Malignant neoplasm of upper-outer quadrant of right female breast; Z17.0 - Estrogen receptor positive status [ER+] (5) DMII (diabetes mellitus, type 2) Current Visit: No Status: Chronic Assessment and plan: Hold oral medication and started on sliding scale correction On diabetic diet Check A1c Qualifiers: Diabetes mellitus longterm insulin use: unspecified buttermaker continuous churn insulin use status Diabetes mellitus complication status: with other specified complication Qualified Code(s): E11.69 - Type 2 diabetes mellitus with other specified complication (6) HTN (hypertension) Current Visit: No Status: Chronic Assessment and plan: Hold blood pressure medication given soft blood pressure, due to dehydration Check orthostatic blood pressure No sign of sepsis No fever no leukocytosis Check lactic acid Continue on IV fluid Qualifiers: Hypertension type: essential hypertension Qualified Code(s): I10 - Essential (primary) hypertension (7) Hyponatremia Current Visit: Yes Status: Acute Assessment and plan: Most likely secondary to diarrhea and dehydration Continue on IV fluid and monitor serum sodium Serum sodium 131 Continue on telemetry (8) Hypothyroidism Current Visit: Yes Status: Chronic Assessment and plan: Resume on home dose levothyroxine Check TSH Qualifiers: Hypothyroidism type: unspecified Qualified Code(s): E03.9 - Hypothyroidism, unspecified - Time Spent With Patient Total time spent is greater than 50% in coordination of care (as documented) at patient's floor/unit and/or counseling patient:
[2019-01-08 17:49] LABS: Estimated Average Glucose 189 mg/dl
[2019-01-08 17:58] LABS: Magnesium 0.9 mg/dL (1.6-2.6); Phosphorous 3.7 mg/dL (2.7-4.5)
[2019-01-08 18:00] LABS: Troponin I < 0.03 ng/mL (< 0.04)
[2019-01-08] MEDS: 0.9 % Sodium Chloride 1,000 ML IVC SCH (19:14)
[2019-01-08] MEDS: Famotidine 20 MG TABLET PO SCH (21:22)
[2019-01-08] MEDS: *HR* Heparin 5,000 UNIT/ML VIAL SQ SCH (21:22)
[2019-01-09 01:56] LABS: Bilirubin,Urine Negative (Negative); Blood,Urine Negative (Negative); Clarity,Urine Cloudy (Clear); Color,Urine Yellow (Yellow); Glucose,Urine (UA) Normal (Normal); Ketones,Urine Negative (Negative); Leukocyte Esterase,Urine Negative (Negative); Nitrite,Urine Negative (Negative); PH,Urine 5.5 pH Units (5.0-8.0); Protein,Urine 30 mg/dL (Neg-Trace); Specific Gravity,Urine 1.013 (1.010-1.025); Urobilinogen,Urine Normal (Normal)
[2019-01-09 01:58] LABS: Bacteria,Urine None Seen per hpf (None-Few); Hyaline Casts,Urine Few per lpf (None-Few); Squamous Epithelial Cell,Urine Many per lpf (None-Few)
[2019-01-09 02:08] LABS: Yeast,Urine Few per hpf (None Seen)
[2019-01-09] MEDS: 0.9 % Sodium Chloride 1,000 ML IVC SCH (04:36)
[2019-01-09] MEDS: *HR* Heparin 5,000 UNIT/ML VIAL SQ SCH ×3 (05:58→21:19)
[2019-01-09] MEDS: Insulin LISPRO 300 UNITS/3 ML VIAL SQ SCH ×3 (08:39→17:36)
[2019-01-09] MEDS: Famotidine 20 MG TABLET PO SCH (08:40)
[2019-01-09] MEDS: Cholecalciferol (D-3) 1,000 UNIT (25MCG) TABLET PO SCH (08:40)
[2019-01-09 09:07] LABS: Hematocrit 36.7 % (35.3-44.9); Hemoglobin 11.8 g/dL (11.5-15.4); Mean Corpuscular HGB Conc 32.2 g/dL (31.6-35.5); Mean Corpuscular Hemoglobin 27.1 pg (28.0-33.3); Mean Corpuscular Volume 84.2 fL (83.0-100.0); Mean Platelet Volume 10.9 fL (9.4-12.4); Platelet Count 215 K/mcL (140-400); Red Blood Count 4.36 M/mcL (3.82-4.97); Red Cell Distribution Width 16.7 % (11.5-14.5); White Blood Count 7.2 K/mcL (4.3-11.1)
[2019-01-09 09:27] LABS: Albumin 3.5 g/dL (3.5-5.7); Albumin/Globulin Ratio 1.3 (1.1-2.2); Bilirubin,Total 0.3 mg/dL (0.3-1.0); Calcium 8.4 mg/dL (8.6-10.3); Globulin 2.6 g/dL (2.4-3.5); Magnesium 1.1 mg/dL (1.6-2.6); Potassium 3.8 mEq/L (3.5-5.1); Total Protein 6.1 g/dL (6.4-8.9)
--- NOTE | 2019-01-09 09:56 | Internal Med Progress Note ---
Hospitalist Progress Note - Encounter Date of Encounter: 01/09/19 Time of Encounter: 09:50 - Subjective Interval History: patient was seen and examined at bedside. feels well still has watery diarrhea no fever c diff pending no cp or SOB - Exam Vitals: Temp Pulse Resp BP Pulse Ox 97.8 F 72 16 115/60 93 01/09/19 06:47 01/09/19 06:47 01/09/19 06:47 01/09/19 06:47 01/09/19 06:47 Exam: Physical examination: Gen.: Patient is alert and oriented, not in respiratory distress or pain, sitting comfortably in bed HEENT: perrla , EOMI, no thyroid gland enlargement, no neck mass, supple neck Heart: S1 and S2 eran, normal sinus rhythm, no cardiac murmur no gallop rhythm Chest: Air entry equal bilaterally, clear chest, no wheezing, crackles or crepitation Abdomen: Soft nontender nondistended positive bowel sounds, no organomegaly Extremities: No pitting edema, peripheral pulses palpable, no cyanosis tenderness Neuro: Able to move all 4 limbs, - Assessment and Plan (1) Acute kidney injury superimposed on CKD Current Visit: Yes Status: Acute Assessment and Plan: (1) Acute kidney injury superimposed on CKD Current Visit: Yes Status: Acute Assessment and plan: Most likely secondary to acute diarrhea with dehydration Continue on IV fluid Avoid nephrotoxic medication serum creatinine trending down to 2.4 from 3.5 baseline 1.6 BP is more stable Check urine culture Urinalysis indicate nitrate negative Leukocyte esterase positive and there is few pyuria Hold IV antibiotic for now (2) Diarrhea Current Visit: Yes Status: Acute Assessment and plan: Most likely secondary to chemotherapy Check C. difficile and stool culture Continue on IV hydration and correct electrolytes On famotidine for GERD Qualifiers: Diarrhea type: unspecified type Qualified Code(s): R19.7 - Diarrhea, unspecified (3) Hypokalemia Current Visit: Yes Status: resolved Assessment and plan: Replaced orally replace hpomagnesemia (4) Breast cancer Current Visit: No Status: Chronic Assessment and plan: Status post chemotherapy Outpatient follow-up (5) DMII (diabetes mellitus, type 2) Current Visit: No Status: Chronic Assessment and plan: Hold oral medication and started on sliding scale correction On diabetic diet A1c 8.2 Qualifiers: Diabetes mellitus correction insulin use: 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 Diabetes mellitus complication status: with other specified complication Qualified Code(s): E11.69 - Type 2 diabetes mellitus with other specified complication (6) HTN (hypertension) Current Visit: No Status: Chronic Assessment and plan: Hold blood pressure medication given soft blood pressure, due to dehydration Check orthostatic blood pressure No sign of sepsis No fever no leukocytosis lactic acid 1.9 Continue on IV fluid Qualifiers: Hypertension type: essential hypertension Qualified Code(s): I10 - Essential (primary) hypertension (7) Hyponatremia Current Visit: Yes Status: resolved Assessment and plan: Most likely secondary to diarrhea and dehydration Continue on IV fluid and monitor serum sodium Serum sodium 137 from 131 Continue on telemetry (8) Hypothyroidism Current Visit: Yes Status: Chronic Assessment and plan: Resume on home dose levothyroxine Check TSH (2) Diarrhea Current Visit: Yes Status: Acute (3) Hypokalemia Current Visit: Yes Status: Acute (4) Breast cancer Current Visit: No Status: Chronic (5) DMII (diabetes mellitus, type 2) Current Visit: No Status: Chronic (6) HTN (hypertension) Current Visit: No Status: Chronic (7) Hyponatremia Current Visit: Yes Status: Acute (8) Hypothyroidism Current Visit: Yes Status: Chronic - Time Spent with Patient Total time spent is greater than 50% in coordination of care (as documented) at patient's floor/unit and/or counseling patient: Internal Medicine: Result - Labs CBC & Chem 7: 01/09/19 08:47 01/09/19 08:47 Labs: Short CBC 01/08/19 01/09/19 Range/Units 16:17 08:47 WBC 6.3 7.2 (4.3-11.1) K/mcL Hgb 11.1 L 11.8 (11.5-15.4) g/dL Hct 34.2 L 36.7 (35.3-44.9) % Plt Count 188 215 (140-400) K/mcL Neutrophils # 3.5 (1.6-8.9) K/mcL BMP 01/08/19 01/09/19 16:17 08:47 Sodium 131 L 137 Potassium 3.4 L 3.8 Chloride 102 106 Carbon Dioxide 17 L 14 L BUN 53 H 51 H Creatinine 3.52 H 2.41 H Glucose 171 H 171 H Calcium 8.4 L 8.4 L Cardiac Enzymes 01/08/19 Range/Units 16:17 Troponin I < 0.03 (< 0.04) ng/mL Liver Function 01/08/19 01/09/19 Range/Units 16:17 08:47 Total Bilirubin 0.5 0.3 (0.3-1.0) mg/dL AST 18 17 (13-39) Units/L ALT 17 15 (7-52) Units/L Alkaline Phosphatase 122 H 131 H (34-104) Units/L Albumin 3.4 L 3.5 (3.5-5.7) g/dL Urine 01/08/19 01/09/19 Range/Units 16:45 01:46 Urine Color Yellow Yellow (Yellow) Urine Clarity Cloudy A Cloudy A (Clear) Urine pH 5.0 5.5 (5.0-8.0) pH Units Ur Specific [place] 1.026 H 1.013 (1.010-1.025) Urine Protein 30 H 30 H (Neg-Trace) mg/dL Urine Glucose (UA) Normal Normal (Normal) mg/dL Consult Discharge Plan - Plan Referrals: Dafne Rodriguez MD [Primary Care Provider] - (2) Diarrhea Qualifiers: Diarrhea type: unspecified type Qualified Code(s): R19.7 - Diarrhea, unspecified (4) Breast cancer Qualifiers: Breast location: upper outer quadrant of breast Estrogen receptor status: positive Patient sex: female Laterality: right Qualified Code(s): C50.411 - Malignant neoplasm of upper-outer quadrant of right female breast; Z17.0 - Estrogen receptor positive status [ER+] (5) DMII (diabetes mellitus, type 2) Qualifiers: Diabetes mellitus 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
--- NOTE | 2019-01-09 09:57 | Oncology Inp Consult Note ---
Date of Encounter: 01/10/19 Time of Encounter: 09:00 Assessment and Plan (1) Breast cancer Status: Chronic Assessment and plan: Status post right breast lumpectomy sentinel lymph node which was negative, ER and HER-2 positive, on adjuvant chemotherapy with weekly Taxol, Herceptin and pertuzumab, started since 12/11/2018. Patient has however experienced diarrhea since she started chemotherapy. Stool C. difficile to be sent. Further treatment was held on 01/08/2019 and she was referred to ED due to abnormal labs. Acute renal insufficiency, history of chronic kidney disease, heart disease patient was hospitalized for hydration, fluid balance. Creatinine is improved from 3.6-2.5 today with IV fluids. Possible d/c once labs stablized. Immodium after checking stool sample. F/U in clinic after d/c. Discuss with house staff Qualifiers: Breast location: upper outer quadrant of breast Estrogen receptor status: positive Patient sex: female Laterality: right Qualified Code(s): C50.411 - Malignant neoplasm of upper-outer quadrant of right female breast; Z17.0 - Estrogen receptor positive status [ER+] - Data of Consult Requesting Physician: Estefany Romo Primary Care Provider: Dafne Rodriguez - Consult Narrative Reason for consult: acute renal insufficiency, diarrhea, s/p chemotherapy breast cancer History of present illness: 78-year-old female with medical history significant for arthritis, diabetes mellitus, hypertension, degenerative joint disease, osteoarthritis hyperlipidemia, chronic kidney disease stage III, congestive heart failure, with right breast cancer at the posterior aspect at 10 to 11 oclock position bx consistent with 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 Started adjuvant chemotherapy on 12/11/2018, with Herceptin pertuzumab and Taxol. She had complaints of diarrhea, not to be secondary to pertuzumab chemotherapy. She was prescribed Imodium continued with Taxol she was seen again in the clinic today to continue with treatment. Patient reported ongoing diarrhea since her last treatment. She also complains of slightly declined intake due to abdominal symptoms. She denies any abdominal pain. She denies any vomiting. She denies any blood loss. Review of systems is otherwise significant for some generalized weakness otherwise no chest pain shortness of breath palpitations cough with expectoration suprapubic pain or dysuria. She has some right upper extremity deformity, contracture and weakness. Past Med Surg Social Fam HX - Past Medical History Medical history: arthritis, diabetes, hyperlipidemia, hypertension Additional medical history: Artificial joints (bilateral knees), CKD StageIII, DJD (bilateral knees), metabolic syndrome, and osteoarthritis. Recently diagnosed with breast cancer w/ last chemo treatment 01/01. Patient reports weakness to right arm as a result of injury sustained at . Psychiatric history: anxiety, depression - Past Surgical History Surgical History: hysterectomy Additional surgical history: Bilateral knee replacement, breast cyst removal (), tonsillectomy. - Social History Smoking Status: Never smoker Smokeless Tobacco Status: No Alcohol use: none Drug use: none - Family History Mother Living Status: Hx Family Cardiac Disorders: Yes Hx Family Endocrine Disorder: Yes (DM) Father Living Status: Medications and Allergies Allopurinol [Zyloprim] 300 mg PO DAILY 05/19/17 [History] Atenolol [Tenormin] 100 mg PO DAILY 05/19/17 [History] Fluticasone Propionate Nasal [Flonase] 1 spr NS BID PRN 05/19/17 [History] Furosemide [Lasix] 20 mg PO BID 05/19/17 [History] Levothyroxine [Synthroid] 150 mcg PO DAILY 05/19/17 [History] Losartan/Hydrochlorothiazide [Hyzaar 100-25 Tablet] 1 tab PO DAILY 05/19/17 [History] Metformin HCl [Glucophage] 1,000 mg PO BID 05/19/17 [History] Pantoprazole Sodium [Protonix] 40 mg PO DAILY 05/19/17 [History] Duloxetine HCl [Cymbalta] 60 mg PO DAILY 11/04/18 [History] Glimepiride [Amaryl] 4 mg PO BID 11/04/18 [History] Meclizine HCl [Verticalm] 25 mg PO DAILY PRN 11/04/18 [History] Prochlorperazine Maleate [Compazine] 10 mg PO Q8H PRN 01/09/19 [History] Allergy/AdvReac Type Severity Reaction Status Date / Time No Known Allergies Allergy Verified 12/25/18 13:55 Review of systems: as in HPI Oncology - Exam - Constitutional General appearance: no acute distress - Head Head exam: Present: atraumatic, normal inspection - Eye Eye exam: Present: sclera anicteric - ENT ENT exam: Present: mucous membranes dry - Neck Additional comments: no adenopathy - Respiratory Respiratory exam: Present: CTAB - Cardiovascular Cardiovascular exam: Present: +S1, +S2 - GI/Abdominal GI/Abdominal exam: Present: hyperactive bowel sounds, soft Additional comments: non tender - Extremities Exam Extremities exam: Present: normal inspection - Neurological Exam Neurological exam: Present: alert, CN II-XII intact, oriented X3, no focal deficits - Psychiatric Psychiatric exam: Present: normal affect Oncology Inpatient Results CR 3.6--3.5-2.5 Consult Discharge Plan - Plan Referrals: Dafne Rodriguez MD [Primary Care Provider] - Inpatient Charges Provider: Dr. Matthew Davis Consult - Inpatient: [id number]
[2019-01-09 10:02] LABS: Basophils % 0.4 %; Eosinophils # 0.1 K/mcL (0.0-0.6); Eosinophils % 1.1 %; Immature Granulocytes % 0.7 % (0-4); Lymphocytes # 2.7 K/mcL (0.6-4.6); Lymphocytes % 36.8 %; Monocytes # 0.7 K/mcL (0.0-1.3); Monocytes % 10.2 %; Neutrophils # 3.7 K/mcL (1.6-8.9); Segmented Neutrophils % 50.8 %
[2019-01-09 17:47] LABS: Uric Acid 5.8 mg/dL (2.3-7.6)
[2019-01-10 05:01] LABS: Basophils % 0.4 %; Eosinophils # 0.1 K/mcL (0.0-0.6); Eosinophils % 1.3 %; Hematocrit 33.4 % (35.3-44.9); Hemoglobin 11.1 g/dL (11.5-15.4); Immature Granulocytes % 0.9 % (0-4); Lymphocytes # 1.8 K/mcL (0.6-4.6); Lymphocytes % 32.5 %; Mean Corpuscular HGB Conc 33.2 g/dL (31.6-35.5); Mean Corpuscular Volume 84.1 fL (83.0-100.0); Mean Platelet Volume 10.3 fL (9.4-12.4); Monocytes # 0.5 K/mcL (0.0-1.3); Monocytes % 9.9 %; Platelet Count 191 K/mcL (140-400); Red Blood Count 3.97 M/mcL (3.82-4.97); Red Cell Distribution Width 16.5 % (11.5-14.5); White Blood Count 5.5 K/mcL (4.3-11.1)
[2019-01-10] MEDS: *HR* Heparin 5,000 UNIT/ML VIAL SQ SCH (05:04)
[2019-01-10 05:21] LABS: Albumin 3.4 g/dL (3.5-5.7); Albumin/Globulin Ratio 1.4 (1.1-2.2); Bilirubin,Total 0.3 mg/dL (0.3-1.0); Calcium 8.7 mg/dL (8.6-10.3); Globulin 2.5 g/dL (2.4-3.5); Potassium 3.7 mEq/L (3.5-5.1); Total Protein 5.9 g/dL (6.4-8.9)
[2019-01-10] MEDS: Famotidine 20 MG TABLET PO SCH (08:37)
[2019-01-10] MEDS: Insulin LISPRO 300 UNITS/3 ML VIAL SQ SCH ×2 (08:38→11:31)
[2019-01-10] MEDS: Cholecalciferol (D-3) 1,000 UNIT (25MCG) TABLET PO SCH (08:38)
--- NOTE | 2019-01-10 09:43 | Oncology Inp Progress Note ---
Date of Encounter: 01/10/19 Time of Encounter: 08:00 (1) Breast cancer Current Visit: No Status: Chronic Assessment and plan: Status post right breast lumpectomy sentinel lymph node which was negative, ER and HER-2 positive, on adjuvant chemotherapy with weekly Taxol, Herceptin and pertuzumab, started since 12/11/2018. Patient has however experienced diarrhea since she started chemotherapy. Stool C. difficile negative. Immodium prn Acute renal insufficiency, labs improving. Encouraged oral hydration. Possible d/c today. Discussed with hospitalist Qualifiers: Breast location: upper outer quadrant of breast Estrogen receptor status: positive Patient sex: female Laterality: right Qualified Code(s): C50.411 - Malignant neoplasm of upper-outer quadrant of right female breast; Z17.0 - Estrogen receptor positive status [ER+] Oncology: Subj Interval history: Diarrhea has slowed down, denies abd pain. Poor appetite - Constitutional General appearance: no acute distress - Head Head exam: Present: atraumatic, normal inspection - Eye Eye exam: Present: sclera anicteric - Respiratory Additional comments: cece ae and clear - Cardiovascular Cardiovascular exam: Present: +S1, +S2 - GI/Abdominal GI/Abdominal exam: Present: normal bowel sounds, soft Additional comments: non tender - Neurological Exam Neurological exam: Present: alert, CN II-XII intact, oriented X3, no focal deficits Oncology: Obj Data - Labs CBC & Chem 7: 01/10/19 04:52 01/10/19 04:52 Consult Discharge Plan - Plan Referrals: Dafne Rodriguez MD [Primary Care Provider] - Inpatient Charges Provider: Dr. Matthew Davis Follow up - Inpatient: [id number]
--- NOTE | 2019-01-10 09:54 | Discharge Summary ---
Orders not resulted at time of discharge: Pending orders 01/08/19 16:45 Culture,Urine [RM] Stat 01/08/19 17:27 Culture,Stool [RM] Routine 01/10/19 09:15 Eosinophil,Urine [URIN] Routine Date of Encounter: 01/10/19 Time of Encounter: 09:48 - Discharge Diagnosis (1) Acute kidney injury superimposed on CKD Priority: Primary Status: Acute (2) Diarrhea Priority: Primary Status: Acute Qualifiers: Diarrhea type: unspecified type Qualified Code(s): R19.7 - Diarrhea, unspecified (3) Hypokalemia Priority: Secondary Status: Acute (4) Breast cancer Priority: Secondary Status: Chronic Qualifiers: Breast location: upper outer quadrant of breast Estrogen receptor status: positive Patient sex: female Laterality: right Qualified Code(s): C50.411 - Malignant neoplasm of upper-outer quadrant of right female breast; Z17.0 - Estrogen receptor positive status [ER+] (5) DMII (diabetes mellitus, type 2) Priority: Secondary Status: Chronic Qualifiers: Diabetes mellitus vermin exterminator insulin use: unspecified vermin exterminator insulin use status Diabetes mellitus complication status: with other specified co mplication Qualified Code(s): E11.69 - Type 2 diabetes mellitus with other specified complication (6) HTN (hypertension) Priority: Secondary Status: Chronic Qualifiers: Hypertension type: essential hypertension Qualified Code(s): I10 - [facility] l (primary) hypertension (7) Hyponatremia Priority: Secondary Status: Acute (8) Hypothyroidism Priority: Secondary Status: Chronic Qualifiers: Hypothyroidism type: unspecified Qualified Code(s): E03.9 - Hypothyroidism, unspecified Hospital course: Ms. Ulloa is a 78 year old female with history of recently diagnosed breast cancer on chemotherapy was admitted because of acute on chronic kidney disease secondary to acute diarrhea and nephrotoxic medication, C. difficile negative the patient was started on IV fluid nephrotoxic medication was held, Serum creatinine improved from 3.2 up to 1.6 on IV fluid, urinalysis indicated nitrate negative and the patient denies urinary symptoms and also urine culture negative on discharge. Diarrhea has resolved on Imodium. Discussed with the oncologist Oncologist also consulted to follow up with the patient. Discussed with the patient and recommended to continue on BB but to hold losartan / hydrochlorothiazide secondary to acute kidney injury and also soft blood pressure on admission, advised to check blood pressure daily follow-up with the primary care in 1 week to decide about assuming losartan/hydrochlorothiazide Also recommend to hold metformin for now and check another BMP in 3 days and to resume metformin if the serum creatinine below 1.5. needs outpatient ADJUSTMENT of diabetic medication - Time Spent with Patient Total time spent providing and/or coordinating discharge services: 32 min - Discharge Medications Prescriptions: Continued Atenolol [Tenormin] 100 mg PO DAILY Levothyroxine [Synthroid] 150 mcg PO DAILY Pantoprazole Sodium [Protonix] 40 mg PO DAILY Meclizine HCl [Verticalm] 25 mg PO DAILY PRN PRN Reason: Dizziness Glimepiride [Amaryl] 4 mg PO BID Duloxetine HCl [Cymbalta] 60 mg PO DAILY Prochlorperazine Maleate [Compazine] 10 mg PO Q8H PRN PRN Reason: Nausea Metformin HCl [Glucophage] 1,000 mg PO BID #0 Discontinued Fluticasone Propionate Nasal [Flonase] 1 spr NS BID PRN PRN Reason: Allergy Symptoms Furosemide [Lasix] 20 mg PO BID Losartan/Hydrochlorothiazide [Hyzaar 100-25 Tablet] 1 tab PO DAILY No Action Allopurinol [Zyloprim] 300 mg PO DAILY Home Medications: Allopurinol [Zyloprim] 300 mg PO DAILY 05/19/17 [History] Atenolol [Tenormin] 100 mg PO DAILY 05/19/17 [History] Levothyroxine [Synthroid] 150 mcg PO DAILY 05/19/17 [History] Pantoprazole Sodium [Protonix] 40 mg PO DAILY 05/19/17 [History] Duloxetine HCl [Cymbalta] 60 mg PO DAILY 11/04/18 [History] Glimepiride [Amaryl] 4 mg PO BID 11/04/18 [History] Meclizine HCl [Verticalm] 25 mg PO DAILY PRN 11/04/18 [History] Prochlorperazine Maleate [Compazine] 10 mg PO Q8H PRN 01/09/19 [History] Metformin HCl [Glucophage] 1,000 mg PO BID #0 01/10/19 [Rx] Allergies/Adverse Reactions: Allergy/AdvReac Type Severity Reaction Status Date / Time No Known Allergies Allergy Verified 12/25/18 13:55 Date of admission: 01/08/19 17:21 Primary care physician: Dafne Rodriguez Consults: 01/08/19 17:17 Consult to Nephrology [CONS] Stat Consulting Provider: [facility]/DEEPA/JATINDER/KIMBERLY Reason for Consult: DARON on CKD Call Completed: No 01/10/19 09:42 Consult to Oncology [CONS] Routine Consulting Provider: [facility] Reason for Consult: Breast cancer Call Completed: Yes - Constitutional Vitals: Temp Pulse Resp BP Pulse Ox 97.7 F 82 20 144/71 93 01/10/19 07:00 01/10/19 07:00 01/10/19 07:00 01/10/19 07:00 01/10/19 09:15 Exam: Physical examination: Gen.: Patient is alert and oriented, not in respiratory distress or pain, sitting comfortably in bed HEENT: perrla , EOMI, no thyroid gland enlargement, no neck mass, supple neck Heart: S1 and S2 eran, normal sinus rhythm, no cardiac murmur no gallop rhythm Chest: Air entry equal bilaterally, clear chest, no wheezing, crackles or crepitation Abdomen: Soft nontender nondistended positive bowel sounds, no organomegaly Extremities: No pitting edema, peripheral pulses palpable, no cyanosis tenderness Neuro: Able to move all 4 limbs, - Patient Status Disposition: Home, Self-Care Condition: Fair - Discharge Instructions Instructions: Acute Kidney Injury (DC) Follow Up With: Dafne Rodriguez MD [Primary Care Provider] - Additional Instructions: check BMP in 3 days on 01/12
[2019-01-10 10:04] LABS: Sodium, Urine 57.6 mEq/L
--- NOTE | 2019-01-10 11:20 | Nephrology Consult Note ---
Date of Encounter: 01/09/19 Time of Encounter: 16:00 Assessment and Plan (1) Acute kidney injury superimposed on CKD Current Visit: Yes Status: Acute Elevated Scr in the setting of persistent diarrhea, decreased po intake with recent chemo Agree with IVF already given, Pt already drinking lots of fluids Will check uric acid and CPK levels Will check urine studies: eosinophils, sodium, urea and creatinine Continue to avoid nephrotoxins if possible (2) Hypokalemia Current Visit: Yes Status: Acute Potassium noted at 3.8, resolved (3) Hyponatremia Current Visit: Yes Status: Acute Sodium noted at 137, resolved after IVF (4) CKD (chronic kidney disease) stage 3, GFR 30-59 ml/min Current Visit: No Status: Chronic Baseline GFR in the 40s History of Present Illness - Reason for Consult Consult date: 01/09/19 Acute Kidney Injury, Chronic Kidney Disease Requesting physician: Harjinder Gonsales - History of Present Illness 78 y o female with PMH of DM, HTN, arthritis, CHF, R breast cancer s/p lumpectomy, chemo with herceptin, pertuzumab, taxol and stage 3 CKD admitted 01/08/19 with abnormal labs with SCr noted at 3.52, GFR 12 already improving to 2.41, GFR 19 with baseline at 1.1, GFR in the 40s. sodium also noted at 131 and bicarb at 14. Pt seen and examined reports persistent diarrhea lately with chemo and decerased po intake. Pt also reports stable stage 3 CKD for which she follows with Dr Gan. Denies any NSAIDs use. No urinary sxs. Past Med Surg Social Fam HX - Past Medical History Medical history: arthritis, diabetes, hyperlipidemia, hypertension Additional medical history: Artificial joints (bilateral knees), CKD StageIII, DJD (bilateral knees), metabolic syndrome, and osteoarthritis. Recently diagnosed with breast cancer w/ last chemo treatment 01/01. Patient reports weakness to right arm as a result of injury sustained at . Psychiatric history: anxiety, depression - Past Surgical History Surgical History: hysterectomy Additional surgical history: Bilateral knee replacement, breast cyst removal (), tonsillectomy. - Social History Smoking Status: Never smoker Smokeless Tobacco Status: No Alcohol use: none Drug use: none - Family History Mother Living Status: Hx Family Cardiac Disorders: Yes Hx Family Endocrine Disorder: Yes (DM) Father Living Status: Medications and Allergies Allopurinol [Zyloprim] 300 mg PO DAILY 05/19/17 [History] Atenolol [Tenormin] 100 mg PO DAILY 05/19/17 [History] Levothyroxine [Synthroid] 150 mcg PO DAILY 05/19/17 [History] Pantoprazole Sodium [Protonix] 40 mg PO DAILY 05/19/17 [History] Duloxetine HCl [Cymbalta] 60 mg PO DAILY 11/04/18 [History] Glimepiride [Amaryl] 4 mg PO BID 11/04/18 [History] Meclizine HCl [Verticalm] 25 mg PO DAILY PRN 11/04/18 [History] Prochlorperazine Maleate [Compazine] 10 mg PO Q8H PRN 01/09/19 [History] Metformin HCl [Glucophage] 1,000 mg PO BID #0 01/10/19 [Rx] Allergy/AdvReac Type Severity Reaction Status Date / Time No Known Allergies Allergy Verified 12/25/18 13:55 Review of Systems All Systems review (narrative): The rest of the systems are negative Constitutional: fatigue (admits) Cardiovascular: chest pain (denies), leg edema (denies) Respiratory: dyspnea (denies) Gastrointestinal: diarrhea (admits) Exam - Vital Signs Vital signs: Initial Vital Signs Temp Pulse Resp BP Pulse Ox 97.7 F 73 18 92/61 95 01/08/19 15:36 01/08/19 15:36 01/08/19 15:36 01/08/19 15:36 01/08/19 15:36 Vital Signs - Last 8 Hours Temp Pulse Resp BP Pulse Ox 01/10/19 09:15 93 01/10/19 07:00 97.7 F 82 20 144/71 93 Intake and Output 01/09/19 01/10/19 01/10/19 23:59 07:59 15:59 Intake Total 1344 / 2568 360 / 360 Output Total 200 / 500 Balance 1144 / 2068 360 / 360 Intake: IV Fluids 1104 / 2208 0.9 % Sodium Chloride 1,000 ML 1000 / 2000 @ 125 mls/hr IVC .Q8H [facility] Rx#: [id number] Magnesium Sulfate 2 GM In 0.9 % 104 / 208 Sodium Chloride 100 ML @ 52 mls/hr IVPB Q2H [facility] Rx#: [id number] Oral 240 / 360 360 / 360 Output: Urine 200 / 500 Other: Meal Dinner Breakfast Percent of Meal Consumed 100% 90% Stool Size Small Stool Consistency soft Stool Color Brown # Voids 1 # Bowel Movements 1 Weight 104.8 kg Blood Glucose* 194 228 Patient Weight 01/10/19 23:59 Weight 104.8 kg - General Appearance General appearance: well-developed, well-nourished EENT: ATNC, mucous membranes moist Neck: no JVD, supple Respiratory: clear Cardiology: no edema, normal S1, normal S2 Gastrointestinal: no tenderness, no guarding Integumentary: rash (LE bilat), warm and dry Neurologic: no focal deficit Musculoskeletal: no deformities Psychiatric: mood/affect appropriate, cooperative Results - Lab Results 01/10/19 04:52 01/10/19 04:52 Most recent lab results 01/10/19 01/10/19 04:52 09:15 Calcium 8.7 Urine Creatinine 102 Urine Sodium 57.6 Consult Discharge Plan - Plan Instructions: Acute Kidney Injury (DC), Hypothyroidism (DC) Additional Instructions: check BMP in 3 days on 01/12 Referrals: Dafne Rodriguez MD [Primary Care Provider] - (Office will call with date and time of appointment) Marli Davis MD [Partnered Physician] - (Appt has been requested. )
[2019-01-10 11:38] VITALS: BP 156/87
--- NOTE | 2019-01-10 11:50 | Electrocardiograph Report ---
[place] [id number] Test Date: 2019-01-08 Pat Name: Lizbet Ulloa Department: 113 Room: 3B Gender: F Support Specialist: : [id number] Requested By: Yohana Mayorga Order Number: [id number] Reading MD: Amy Shine Measurements Intervals [place] Rate: 69 P: 33 MS: 184 QRS: -2 QRSD: 148 T: 21 QT: 407 QTc: 426 Interpretive Statements SINUS RHYTHM RIGHT BUNDLE BRANCH BLOCK [120+ ms QRS DURATION, UPRIGHT V1, 40+ ms S IN I/aVL/V4/V5/V6] Electronically Signed On 01-10-2019 11:48:41 EDT by Amy Shine
== END 2019-01-10 11:52 | disposition home or self-care (01) ==
LOC: EMEROOARM 15:35 → 3BNU 15:35
PROVIDERS: ADMIT Internal Medicine Nephrology; ATTEND Internal Medicine Nephrology